=== PATIENT | female | born 1990 | race Caucasian/White ===

== ENCOUNTER 2019-08-07 12:30 | Emergency (ER) | payer SELFPAY ==
[2019-08-07] MEDS ORDERED: Ketorolac Tromethamine 30 MG/ML VIAL ONE (13:54)
== END 2019-08-07 14:11 | disposition home or self-care (01) ==
LOC: ERS 12:30
DX: K01.1 Impacted teeth (principal); Z87.891 Personal history of nicotine dependence
CPT/HCPCS: 96372; 99282; J1885